=== PATIENT | female | born 1950 | race Caucasian/White ===

== ENCOUNTER → 2017-02-10 | Outpatient (CLI) | payer MEDICARE, BC ==
[2017-02-10 09:10] LABS: ALT 38 U/L (9-52); AST 23 U/L (14-36); Alkaline Phosphatase 87 U/L (38-126); Anion Gap 12 mmol/L; Blood Urea Nitrogen 17 mg/dL (7-17); Calcium 9.1 mg/dL (8.4-10.2); Carbon Dioxide 24 mmol/L (22-30); Chloride 107 mmol/L (98-107); Cholesterol 246 mg/dL (<200); Glucose 86 mg/dL (74-99); HDL Cholesterol 76 mg/dL (40-60); Non-African American GFR(MDRD) >60 (>60 ml/min/1.73 sqM); Potassium 4.3 mmol/L (3.5-5.1); Sodium 143 mmol/L (137-145); Total Bilirubin 0.8 mg/dL (0.2-1.3); Total Protein 6.6 g/dL (6.3-8.2)
== END | disposition home or self-care (01) ==
LOC: LABWHC1 07:38
PROVIDERS: ATTEND Internal Medicine Interventional Cardiology
DX: E78.2 Mixed hyperlipidemia (principal)
CPT/HCPCS: 36415; 80053; 80061

== ENCOUNTER → 2017-06-23 | Outpatient (CLI) | payer MEDICARE, BC ==
--- NOTE | 2017-06-24 11:50 | MM ---
Reason for exam: screening (asymptomatic). Last mammogram was performed 1 year ago. History: Patient is postmenopausal and history of other cancer. Family history of premenopausal breast cancer in mother. Physical Findings: A clinical breast exam by your physician is recommended on an annual basis and results should be correlated with mammographic findings. MG Screening Mammo w CAD Bilateral CC and MLO view(s) were taken. Prior study comparison: June 15, 2016, bilateral MG screening mammo w CAD. May 01, 2015, bilateral MG screening mammo w CAD. There are scattered fibroglandular densities. Finding: There are typically benign round calcifications in both breasts. There is a chronic nodularity in the left axilla. There is no discrete abnormality. ASSESSMENT: Benign, BI-RAD 2 RECOMMENDATION: Routine screening mammogram of both breasts in 1 year.
== END | disposition home or self-care (01) ==
LOC: RADMAMWWP 07:04
PROVIDERS: ATTEND Obstetrics & Gynecology
DX: Z12.31 Encounter for screening mammogram for malignant neoplasm of breast (principal)
CPT/HCPCS: 77067

== ENCOUNTER → 2017-07-18 | Outpatient (CLI) | payer MEDICARE, BC ==
[2017-07-18 07:37] LABS: ALT 29 U/L (9-52); AST 22 U/L (14-36); Cholesterol 218 mg/dL (<200); HDL Cholesterol 72 mg/dL (40-60); LDL Cholesterol,Calculated 126 mg/dL (0-99); Triglycerides 101 mg/dL (<150)
== END | disposition home or self-care (01) ==
LOC: LABWHC1 06:34
PROVIDERS: ATTEND Internal Medicine Interventional Cardiology
DX: E78.2 Mixed hyperlipidemia (principal)
CPT/HCPCS: 36415; 80061; 84450; 84460

== ENCOUNTER → 2018-08-01 | Outpatient (CLI) | payer MEDICARE, BC ==
--- NOTE | 2018-08-01 08:52 | BD ---
EXAMINATION TYPE: Axial Bone Density DATE OF EXAM: 08/01/2018 COMPARISON: DEXA bone scan June 15, 2016 CLINICAL HISTORY: Postmenopausal female Height: 5 FT 4 1/2 IN Weight: 128 FRAX RISK QUESTIONS: RISK FACTORS HISTORY OF: Active: YES Postmenopausal woman: AGE 51 MEDICATIONS: Thyroid Medications: YES Which medication: LEVOTHYROXINE How Long: ONE YEAR Additional Medications: LEVOTHYROXINE PRAVASTATIN Additional History: EXAM MEASUREMENTS: Bone mineral densitometry was performed using the [employer] System. Bone mineral density as measured about the Lumbar spine is: ----- L1-L4(G/cm2): 1.098 T Score Values are as follows: ----- L2: -1.8 ----- L3: -0.2 ----- L4: 0.5 ----- L1-L4: -0.7 Bone mineral density has: INCREASED 6.2 % since study of: 2015 Bone mineral density about the R hip (g/cm2): 0.769 Bone mineral density about the L hip (g/cm2): 0.826 T Score values are as follows: -----R Neck: -1.9 -----L Neck: -1.5 -----R Total: -2.1 -----L Total: -2.2 Bone mineral density has: DECREASED -1.6 % since study of: 2015 IMPRESSION: Osteopenia (T Score between -2.5 and -1) remains present in low back and both hips. There remains slightly increased risk of fracture and the patient may be considered for treatment. Re-Screen 2-5 years. NOTE: T-SCORE=SD OF THE YOUNG ADULT MEAN.
--- NOTE | 2018-08-02 09:43 | MM ---
Reason for exam: screening (asymptomatic). Last mammogram was performed 1 year and 1 month ago. History: Patient is postmenopausal and history of other cancer. Family history of premenopausal breast cancer in mother. Physical Findings: A clinical breast exam by your physician is recommended on an annual basis and results should be correlated with mammographic findings. MG 3D Screening Mammo W/Cad Bilateral CC and MLO view(s) were taken. Prior study comparison: June 23, 2017, bilateral MG screening mammo w CAD. June 15, 2016, bilateral MG screening mammo w CAD. There are scattered fibroglandular densities. Scattered benign oil cysts greater in the right breast. No significant changes when compared with prior studies. ASSESSMENT: Negative, BI-RAD 1 RECOMMENDATION: Routine screening mammogram of both breasts in 1 year.
== END | disposition home or self-care (01) ==
LOC: RADMAMWWP 06:56
PROVIDERS: ATTEND Obstetrics & Gynecology
DX: Z12.31 Encounter for screening mammogram for malignant neoplasm of breast (principal); Z13.820 Encounter for screening for osteoporosis; M85.88 Other specified disorders of bone density and structure, other site; M85.851 Other specified disorders of bone density and structure, right thigh; M85.852 Other specified disorders of bone density and structure, left thigh
CPT/HCPCS: 77063; 77067; 77080

== ENCOUNTER → 2018-08-01 | Outpatient (CLI) | payer MEDICARE, BC ==
[2018-08-01 11:46] LABS: LDL Cholesterol,Calculated 111.8 mg/dL (0.0-131.0); VLDL Calculation 15.2 mg/dL (5.00-40.00)
== END | disposition home or self-care (01) ==
LOC: LABWHC1 06:51
PROVIDERS: ATTEND Internal Medicine Interventional Cardiology
DX: E78.2 Mixed hyperlipidemia (principal)
CPT/HCPCS: 36415; 80061; 82550; 84450; 84460

== ENCOUNTER → 2019-02-22 | Outpatient (CLI) | payer MEDICARE, BC ==
[2019-02-22 12:01] LABS: Chol/HDL Ratio 3.34; LDL Cholesterol,Calculated 132.4 mg/dL (0.0-131.0); VLDL Calculation 24.6 mg/dL (5.00-40.00)
== END | disposition home or self-care (01) ==
LOC: LABWHC1 06:53
PROVIDERS: ATTEND Nurse Practitioner Adult Health
DX: E78.2 Mixed hyperlipidemia (principal)
CPT/HCPCS: 36415; 80061; 82550; 84450; 84460

== ENCOUNTER → 2019-12-31 | Outpatient (CLI) | payer MEDICARE, BC ==
--- NOTE | 2020-01-02 08:54 | MM ---
Reason for exam: screening (asymptomatic). Last mammogram was performed 1 year and 5 months ago. History: Patient is postmenopausal and history of other cancer. Family history of premenopausal breast cancer in mother. Physical Findings: A clinical breast exam by your physician is recommended on an annual basis and results should be correlated with mammographic findings. MG 3D Screening Mammo W/Cad Bilateral CC and MLO view(s) were taken. Prior study comparison: August 01, 2018, bilateral MG 3d screening mammo w/cad. June 23, 2017, bilateral MG screening mammo w CAD. The breast tissue is heterogeneously dense. This may lower the sensitivity of mammography. Probable summation. This finding is changed when compared with previous exams. ASSESSMENT: Incomplete: need additional imaging evaluation, BI-RAD 0 RECOMMENDATION: Special view mammogram of the left breast. If lesion persists on supplemental views, image directed ultrasound is recommended. [facility] will attempt to contact patient to return for supplemental views and ultrasound if indicated.
== END | disposition home or self-care (01) ==
LOC: RADMAMWWP 07:14
PROVIDERS: ATTEND Obstetrics & Gynecology
DX: Z12.31 Encounter for screening mammogram for malignant neoplasm of breast (principal)
CPT/HCPCS: 77063; 77067

== ENCOUNTER → 2020-01-03 | Outpatient (CLI) | payer MEDICARE, BC ==
--- NOTE | 2020-01-03 08:22 | MM ---
Reason for exam: additional evaluation requested from abnormal screening. Last mammogram was performed less than 1 month ago. History: Patient is postmenopausal and history of other cancer. Family history of premenopausal breast cancer in mother at age 50. Physical Findings: Nurse did not find any significant physical abnormalities on exam. MG 3D Work Up W/Cad LT LM and spot compression MLO view(s) were taken of the left breast. Prior study comparison: December 31, 2019, bilateral MG 3d screening mammo w/cad. August 01, 2018, bilateral MG 3d screening mammo w/cad. There is no discrete abnormality. These results were verbally communicated with the patient and result sheet given to the patient on 01/03/20. ASSESSMENT: Negative, BI-RAD 1 RECOMMENDATION: Return to routine screening mammogram schedule for both breasts.
== END | disposition home or self-care (01) ==
LOC: RADMAMWWP 07:05
PROVIDERS: ATTEND Obstetrics & Gynecology
DX: R92.8 Other abnormal and inconclusive findings on diagnostic imaging of breast (principal)
CPT/HCPCS: 77065; G0279; 77061

== ENCOUNTER → 2020-03-21 | Outpatient (CLI) | payer MEDICARE, BC ==
[2020-03-21 11:27] LABS: African American GFR (CKD) 102.5 (60.0-200.0); Albumin 4.4 g/dL (3.80-4.90); Albumin/Globulin Ratio 2.44 (1.60-3.17); Anion Gap 8.7 mmol/L (4.00-12.00); BUN/Creat Ratio 17.14 Ratio (12.00-20.00); Calcium 9.3 mg/dL (8.7-10.3); Carbon Dioxide 25.3 mmol/L (21.6-31.8); Chol/HDL Ratio 3.2; Globulin 1.8 g/dL (1.6-3.3); LDL Cholesterol,Calculated 122.6 mg/dL (0.0-131.0); Non-African American GFR(CKD) 88.4 (60.0-200.0); Potassium 4.5 mmol/L (3.5-5.5); Total Bilirubin 0.5 mg/dL (0.2-1.2); Total Protein 6.2 g/dL (6.2-8.2); VLDL Calculation 20.4 mg/dL (5.00-40.00)
== END | disposition home or self-care (01) ==
LOC: LABWHC1 07:06
PROVIDERS: ATTEND Internal Medicine Interventional Cardiology
DX: E78.2 Mixed hyperlipidemia (principal)
CPT/HCPCS: 36415; 80053; 80061

== ENCOUNTER → 2020-05-29 | Outpatient (CLI) | payer MEDICARE, BC ==
[2020-05-29 11:09] LABS: Chol/HDL Ratio 2.77
== END | disposition home or self-care (01) ==
LOC: LABWHC1 07:11
PROVIDERS: ATTEND Nurse Practitioner Adult Health
DX: E78.2 Mixed hyperlipidemia (principal)
CPT/HCPCS: 36415; 80061; 84450; 84460

== ENCOUNTER → 2020-12-26 | Outpatient (CLI) | payer MEDICARE, BC | END | disposition home or self-care (01) ==

== ENCOUNTER → 2021-01-02 | Outpatient (CLI) | payer MEDICARE, BC ==
--- NOTE | 2021-01-06 13:44 | MM ---
Reason for exam: screening (asymptomatic). Last mammogram was performed 1 year ago. History: Patient is postmenopausal and history of other cancer. Family history of premenopausal breast cancer in mother at age 50. Took hormonal contraceptives for 3 months. Physical Findings: A clinical breast exam by your physician is recommended on an annual basis and results should be correlated with mammographic findings. MG 3D Screening Mammo W/Cad Bilateral CC and MLO view(s) were taken. Prior study comparison: January 03, 2020, left breast MG 3d work up w/cad LT. December 31, 2019, bilateral MG 3d screening mammo w/cad. No significant changes when compared with prior studies. ASSESSMENT: Benign, BI-RAD 2 RECOMMENDATION: Routine screening mammogram of both breasts in 1 year.
== END | disposition home or self-care (01) ==
LOC: RADMAMWWP 07:51
PROVIDERS: ATTEND Obstetrics & Gynecology
DX: Z12.31 Encounter for screening mammogram for malignant neoplasm of breast (principal)
CPT/HCPCS: 77063; 77067

== ENCOUNTER → 2022-01-11 | Outpatient (CLI) | payer MEDICARE, BC ==
--- NOTE | 2022-01-11 09:53 | BD ---
EXAMINATION TYPE: Axial Bone Density DATE OF EXAM: 01/11/2022 COMPARISON: 06.15.2016 IN DATABASE CLINICAL HISTORY: 71 years year old Female. ICD-10 CODE: M85.88 OSTEOPENIA Height: 64.4 Weight: 123 FRAX RISK QUESTIONS: NOTHING ADDITIONAL TO ADD HERE RISK FACTORS HISTORY OF: Active: YES Postmenopausal woman: YES, AT AGE 53 YRS OLD Hyperparathyroidism: NO Adrenal Insufficiency: NO MEDICATIONS: Thyroid Medications: YES, SYNTHROID PRODUCT FOR ABOUT 5 YRS Additional Medications: STATIN FOR CHOLESTEROL, VIT D , CALCIUM AND MULTIVITAMIN Additional History: CHOLESTEROL, THYROID EXAM MEASUREMENTS: Bone mineral densitometry was performed using the [employer]. Bone mineral density as measured about the Lumbar spine is: ----- L1-L4(G/cm2): 1.075 T Score Values are as follows: ----- L1: -1.6 ----- L2: -2.1 ----- L3: -0.4 ----- L4: 0.3 ----- L1-L4: -0.9 Bone mineral density has: Increased 3.3% since study of: 06.15.2016 Bone mineral density about the R hip (g/cm2): 0.731 Bone mineral density about the L hip (g/cm2): 0.699 T Score values are as follows: -----R Neck: -2.2 -----L Neck: -2.1 -----R Total: -2.2 -----L Total: -2.5 Bone mineral density has: Decreased -5.2% since study of: 06.15.2016 FRAX%s: The graph provided illustrates a 11.7% chance for a major osteoporotic fx and a 2.8% chance f or the hips probability for fx in 10 years time. IMPRESSION: Osteopenia (T Score between -2.5 and -1). There is slightly increased risk of fracture and the patient may be considered for treatment. Re-Screen 2-5 years. NOTE: T-SCORE=SD OF THE YOUNG ADULT MEAN.
== END | disposition home or self-care (01) ==
LOC: RADMAMWWP 07:28
PROVIDERS: ATTEND Obstetrics & Gynecology
DX: Z12.31 Encounter for screening mammogram for malignant neoplasm of breast (principal)
CPT/HCPCS: 77063; 77067; 77080

== ENCOUNTER → 2022-06-17 | Outpatient (CLI) | payer MEDICARE, BC ==
[2022-06-17 10:51] LABS: ALT 19 U/L (8-44); AST 19 U/L (13-35); Chol/HDL Ratio 3.09 Ratio; LDL Cholesterol,Calculated 144.7 mg/dL (0.0-131.0); VLDL Calculation 16.16 mg/dL (5.00-40.00)
== END | disposition home or self-care (01) ==
LOC: LABWHC1 06:54
PROVIDERS: ATTEND Internal Medicine Interventional Cardiology
DX: E78.2 Mixed hyperlipidemia (principal)
CPT/HCPCS: 36415; 80061; 84450; 84460

== ENCOUNTER → 2023-01-18 | Outpatient (CLI) | payer MEDICARE, BC ==
--- NOTE | 2023-01-19 18:56 | MM ---
Reason for Exam: Screening (asymptomatic). Last mammogram was performed 1 year(s) and 1 month(s) ago. Patient History: Menarche at age 17. First Full-Term at age 24. Postmenopausal. Other cancer. Hormonal Contraceptives for 3 months. Mother had breast cancer, age 52. Risk Values: Minnie 5 year model risk: 3.0%. NCI Lifetime model risk: 8.3%. Prior Study Comparison: 01/03/2020 Left Diagnostic Mammogram, [facility]. 01/02/2021 Bilateral Screening Mammogram, [facility]. 01/11/2022 Bilateral MG 3D screening mammo w/cad, [facility]. Tissue Density: There are scattered fibroglandular densities. Findings: Analyzed By CAD. Pattern appears symmetrical and stable. Benign coarse calcifications within the right breast. No significant interval changes are evident No suspicious groups of microcalcifications, spiculated or lobular masses, architectural distortion or other secondary signs of malignancy are mammographically apparent. Overall Assessment: Benign, BI-RAD 2 Management: Screening Mammogram of both breasts in 1 year. A negative mammogram report should not preclude additional follow up of suspicious palpable abnormalities. Patient should continue monthly self breast exam. A clinical breast exam by your physician is recommended on an annual basis and results should be correlated with mammographic findings. Electronically signed and approved by: Hernan Coulter D.O. Radiologis
== END | disposition home or self-care (01) ==
LOC: RADMAMWWP 07:50
PROVIDERS: ATTEND Obstetrics & Gynecology
DX: Z12.31 Encounter for screening mammogram for malignant neoplasm of breast (principal); Z78.0 Asymptomatic menopausal state; Z80.3 Family history of malignant neoplasm of breast
CPT/HCPCS: 77063; 77067

== ENCOUNTER 2023-03-02 09:42 | Observation (INO) | payer MEDICARE, BC ==
--- NOTE | 2023-03-02 10:14 | ED ---
Chest Pain HPI - General Source: patient, RN notes reviewed Mode of arrival: ambulatory Limitations: no limitations <Colby Harris - Last Filed: 03/02/23 10:13> - General Source: RN notes reviewed, old records reviewed - History of Present Illness MD Complaint: chest pain, other (Elevated blood pressure) -: days(s) Onset: during rest, during exertion Pain Location: substernal, left chest, right chest, epigastric Pain Radiation: back Severity: moderate Severity scale (1-10): 5 Quality: aching, heaviness Consistency: constant Improves With: nothing Worsens With: nothing Anginal Symptoms: dyspnea Other Symptoms: palpitations Treatments Prior to Arrival: none <Leroy Santos - Last Filed: 03/09/23 18:27> - General Chief Complaint: Chest Pain Stated Complaint: Chest Pain Time Seen by Provider: 03/02/23 10:13 - History of Present Illness Initial Comments: 72-year-old female presents emergency Department chief complaint chest pain, chest pressure. Patient states pain started earlier today. She does feel short of breath. Patient states that she used to be on blood pressure medication for 2 months but it was discontinued. Patient large blood pressure and follows up with Dr. Moseley. Patient has no prior cardiac stents. Denies any leg pain or leg swelling (Colby Harris) This is a 72-year-old female to the emergency department for evaluation of chest pain and severe elevated blood pressure. Hypertensive blood pressure. Patient is she woke up not really feeling well and prompted her to check her blood pressure which was noted to be extremely elevated. Patient is occasionally follow with her blood pressure usually around her yearly appointment with cardiology. Patient became concerned and are significantly elevated blood pressure and presents here with elevated blood pressure chest pain and prior symptoms of not feeling well. (Leroy Santos) - Related Data Home Medications Medication Instructions Recorded Confirmed Ezetimibe [Zetia] 10 mg PO HS 03/02/23 03/02/23 Levothyroxine Sodium [Synthroid] 25 mcg PO DAILY 03/02/23 03/02/23 Previous Rx's Medication Instructions Recorded Aspirin 81 mg PO DAILY #30 tab 03/03/23 Metoprolol Tartrate [Lopressor] 25 mg PO BID #60 tab 03/03/23 Allergies Allergy/AdvReac Type Severity Reaction Status Date / Time codeine Allergy Rash/Hives Verified 03/02/23 15:51 Sulfa (Sulfonamide Allergy Rash/Hives Verified 03/02/23 15:51 Antibiotics) Review of Systems ROS Other: All systems not noted in ROS Statement are negative. <Colby Harris - Last Filed: 03/02/23 10:13> ROS Other: All systems not noted in ROS Statement are negative. <Leroy Santos - Last Filed: 03/09/23 18:27> ROS Statement: Those systems with pertinent positive or pertinent negative responses have been documented in the HPI. Past Medical History Past Medical History: Hyperlipidemia, Thyroid Disorder History of Any Multi-Drug Resistant Organisms: None Reported Past Surgical History: Tubal Ligation Additional Past Surgical History / Comment(s): mole removed Past Psychological History: No Psychological Hx Reported Smoking Status: Never smoker Past Alcohol Use History: Rare Past Drug Use History: None Reported <JackmontanaColby Pak - Last Filed: 03/02/23 10:13> General Exam Limitations: no limitations <KimberlyColby Pak - Last Filed: 03/02/23 10:13> General appearance: alert, in no apparent distress Head exam: Present: atraumatic, normocephalic, normal inspection Eye exam: Present: normal appearance, PERRL, EOMI. Absent: scleral icterus, conjunctival injection, periorbital swelling ENT exam: Present: normal exam, mucous membranes moist Neck exam: Present: normal inspection. Absent: tenderness, meningismus, lymphadenopathy Respiratory exam: Present: normal lung sounds bilaterally. Absent: respiratory distress, wheezes, rales, rhonchi, stridor Cardiovascular Exam: Present: regular rate, normal rhythm, normal heart sounds. Absent: systolic murmur, diastolic murmur, rubs, gallop, clicks GI/Abdominal exam: Present: soft, normal bowel sounds. Absent: distended, tenderness, guarding, rebound, rigid Extremities exam: Present: normal inspection, full ROM, normal capillary refill. Absent: tenderness, pedal edema, joint swelling, calf tenderness Back exam: Present: normal inspection Neurological exam: Present: alert, oriented X3, CN II-XII intact Psychiatric exam: Present: normal affect, normal mood Skin exam: Present: warm, dry, intact, normal color. Absent: rash <Leroy Santos - Last Filed: 03/09/23 18:27> - General Exam Comments Initial Comments: Visual Physical Exam Vital signs reviewed General: Well-appearing, nontoxic, no acute distress. Head: Normocephalic, atraumatic Eyes: PERRLA, EOMI ENT: Airway patent Chest: Nonlabored breathing Skin: No visual rash, normal skin tone Neuro: Alert and oriented 3 Musculoskeletal: No gross abnormalities (Colby Harris) Course <Leroy Santos - Last Filed: 03/09/23 18:27> Vital Signs 03/02/23 03/02/23 03/02/23 10:06 17:42 21:30 Temperature 97.9 F 97.4 F L Pulse Rate 78 67 68 Respiratory 18 18 18 Rate Blood Pressure 133/76 141/72 164/69 O2 Sat by Pulse 95 98 98 Oximetry - Reevaluation(s) Reevaluation #1: 03/02/23 16:28 Medical record is reviewed (Leroy Santos) Reevaluation #2: 03/02/23 16:28 Symptoms are unchanged 03/02/23 16:29 Still with chest pain blood pressure remains elevated (Leroy Santos) Reevaluation #3: 03/02/23 16:29 Patient informed results questions answered (Leroy Santos) Reevaluation #4: 03/02/23 16:29 Was pt. sent in by a medical professional or institution (, PA, PRINTING MACHINE OPERATOR, urgent care, hospital, or [facility]...) When possible be specific @ -no Did you speak to anyone other than the patient for history (EMS, parent, family, police, friend...)? What history was obtained from this source @ -no Did you review nursing and triage notes (agree or disagree)? Why? @ -agree Are old charts reviewed (outside hosp., previous admission, EMS record, old EKG, old radiological studies, urgent care reports/EKG's, [facility] records)? Report findings @ -yes Differential Diagnosis (chest pain, altered mental status, abdominal pain women, abdominal pain men, vaginal bleeding, weakness, fever, dyspnea, syncope, headache, dizziness, GI bleed, back pain, seizure, CVA, palpatations, mental health, musculoskeletal)? @ -prior EKG interpreted by me (3pts min.). @ -yes X-rays interpreted by me (1pt min.). @ -yes CT interpreted by me (1pt min.). @ -no U/S interpreted by me (1pt. min.). @ -no What testing was considered but not performed or refused? (CT, X-rays, U/S, labs)? Why? @ -none What meds were considered but not given or refused? Why? @ -none Did you discuss the management of the patient with other professionals (professionals i.e. Dr., PA, PRINTING MACHINE OPERATOR, lab, RT, psych nurse, director social, stock taker, teacher, navy airspace officer, patient case coordinator)? Give summary @ -no Was smoking cessation discussed for >3mins.? @ -no Was critical care preformed (if so, how long)? @ -yes31 Were there social determinants of health that impacted care today? How? (H omelessness, low income, unemployed, alcoholism, drug addiction, transportation, low edu. Level, literacy, decrease access to med. care, correction, rehab)? @ -none Was there de-escalation of care discussed even if they declined (Discuss DNR or withdrawal of care, Hospice)? DNR status @ -no What co-morbidities impacted this encounter? (DM, HTN, Smoking, COPD, CAD, Cancer, CVA, ARF, Chemo, Hep., AIDS, mental health diagnosis, sleep apnea, morbid obesity)? @ -none Was patient admitted / discharged? Hospital course, mention meds given and route, prescriptions, significant lab abnormalities, going to OR and other pertinent info. @ - 72 female will be admitted for chest pain, does have chest pain observation criteria with severely elevated blood pressure will admit for blood pressure control as well. Admitted Undiagnosed new problem with uncertain prognosis? @ -no Drug Therapy requiring intensive monitoring for toxicity (Heparin, Nitro, Insulin, Cardizem)? @ -no Were any procedures done? @ -no Diagnosis/symptom? @ -Chest pain and hypertensive urgency Acute, or Chronic, or Acute on Chronic? @ -Acute Uncomplicated (without systemic symptoms) or Complicated (systemic symptoms)? @ -Complicated Side effects of treatment? @ -no Exacerbation, Progression, or Severe Exacerbation? @ -exacerbation Poses a threat to life or bodily function? How? (Chest pain, [place], [place], pneumonia, PE, COPD, DKA, ARF, appy, cholecystitis, CVA, Diverticulitis, Homicidal, Suicidal, threat to staff... and all critical care pts) @ -yes was severely elevated blood pressure (Leroy Santos) Reevaluation #5: 03/02/23 16:29 Differential Chest Pain: Stable Angina, Unstable Angina, STEMI, NSTEMI Aortic Dissection, Pneumothorax, Musculoskeletal, Esophageal Spasm GERD, Cholecystitis, Pancreatitis, Zoster, this is not meant to be an all-inclusive list. (Leroy Santos) - Consultations Consultation #1: Spoke with admitting physicians who agree to admit this patient (Leroy Santos) Chest Pain MDM <Colby Harris - Last Filed: 03/02/23 10:13> <Leroy Santos - Last Filed: 03/09/23 18:27> - MDM I performed a quick note portion of this Chart signed Colby Harris PA-C (Colby Harris) 72 female will be admitted for chest pain, does have chest pain observation criteria with severely elevated blood pressure will admit for blood pressure control as well. (Leroy Santos) Critical Care Time Critical Care Time: Yes Total Critical Care Time: 31 <Leroy Santos - Last Filed: 03/09/23 18:27> Disposition <Colby Harris - Last Filed: 03/02/23 10:13> Is patient prescribed a controlled substance at d/c from ED?: No Time of Disposition: 16:30 <Leroy Santos - Last Filed: 03/09/23 18:27> Clinical Impression: Chest pain, Hypertensive urgency Disposition: ADMITTED IP TO THIS HOSP
--- NOTE | 2023-03-02 10:34 | XR ---
EXAMINATION TYPE: XR chest 2V DATE OF EXAM: 03/02/2023 COMPARISON: None INDICATION: Chest pain TECHNIQUE: Frontal and lateral views of the chest are obtained. FINDINGS: The heart size is normal. The pulmonary vasculature is normal. The lungs are clear. IMPRESSION: 1. No acute pulmonary process.
[2023-03-02 11:01] LABS: Basophils % (A) 0 %; Eosinophils # (A) 0.2 k/uL (0-0.7); Eosinophils % (A) 3 %; HCT 39.6 % (34.0-46.0); Lymphocytes # (A) 1.2 k/uL (1.0-4.8); Lymphocytes % (A) 19 %; MCH 28.9 pg (25.0-35.0); MCHC 32.9 g/dL (31.0-37.0); Mean Platelet Volume 9.1; Monocytes # (A) 0.3 k/uL (0-1.0); Monocytes % (A) 5 %; Neutrophils # (A) 4.8 k/uL (1.3-7.7); Neutrophils % (A) 72 %; Platelet Count 263 k/uL (150-450); RDW 13.8 % (11.5-15.5); WBC 6.7 k/uL (3.8-10.6)
[2023-03-02 11:15] LABS: INR 0.9 (<1.2); Partial Thromboplastin Time 23.3 sec (22.0-30.0); Prothrombin Time 9.7 sec (9.0-12.0)
[2023-03-02 11:24] LABS: ALT 22 U/L (4-34); AST 27 U/L (14-36); African American GFR (CKD) >90 (>60 ml/min/1.73 sqM); Albumin 4.3 g/dL (3.5-5.0); Alkaline Phosphatase 81 U/L (38-126); Anion Gap 7 mmol/L; Blood Urea Nitrogen 14 mg/dL (7-17); Calcium 9.3 mg/dL (8.4-10.2); Carbon Dioxide 24 mmol/L (22-30); Chloride 107 mmol/L (98-107); Glucose 103 mg/dL (74-99); Magnesium 2.1 mg/dL (1.6-2.3); Non-African American GFR(CKD) >90 (>60 ml/min/1.73 sqM); Potassium 4.3 mmol/L (3.5-5.1); Sodium 138 mmol/L (137-145); Total Bilirubin 0.8 mg/dL (0.2-1.3); Total Protein 6.8 g/dL (6.3-8.2)
[2023-03-02 11:31] LABS: NT-Pro-B-Type Natriuretic Pept 174 pg/mL
[2023-03-02] MEDS ORDERED: NALOXONE 0.4 MG/ML 1 ML VIAL IV PRN (16:31)
[2023-03-02] MEDS ORDERED: ONDANSETRON 4 MG/2 ML VIAL IVP PRN (16:31)
[2023-03-02] MEDS ORDERED: LABETALOL 5 MG/ML VIAL MDV IVP STA (16:31)
[2023-03-02] MEDS ORDERED: MORPHINE SULFATE 4 MG/ML SYRINGE IV PRN (16:31)
[2023-03-02] MEDS ORDERED: SODIUM CHLORIDE 0.9% 1,000 ML IV STA ×2 (16:31)
[2023-03-02] MEDS: METOPROLOL TARTRATE 50 MG TAB PO SCH (21:29)
[2023-03-03] MEDS ORDERED: LEVOTHYROXINE 25 MCG TAB PO SCH (06:30)
[2023-03-03 08:35] LABS: Basophils # (A) 0.02 X 10*3/uL (0.00-0.10); Basophils % (A) 0.4 %; Eosinophils # (A) 0.16 X 10*3/uL (0.04-0.35); Eosinophils % (A) 3.1 %; HCT 34.5 % (37.2-46.3); MCH 28.6 pg (27.0-32.0); MCHC 31.9 d/dL (32.0-37.0); MCV 89.6 FL (80.0-97.0); Mean Platelet Volume 11.4 FL (9.5-12.2); Monocytes % (A) 7.8 %; NRBC Per 100 WBC 0 X 10*3/uL (0.00-0.01); Neutrophils # (A) 2.64 X 10*3/uL (1.80-7.70); Neutrophils % (A) 51.3 %; Platelet Count 266 X 10*3/uL (140-440); RBC 3.85 X 10*6/uL (4.10-5.20); WBC 5.14 X 10*3/uL (4.50-10.00)
[2023-03-03 09:14] LABS: ALT 16 U/L (8-44); AST 17 U/L (13-35); Albumin 3.8 d/dL (3.8-4.9); Albumin/Globulin Ratio 2.53 Ratio (1.60-3.17); Alkaline Phosphatase 63 U/L (41-126); BUN/Creat Ratio 17.29 Ratio (12.00-20.00); Blood Urea Nitrogen 12.1 mg/dL (9.0-27.0); Calcium 8.6 mg/dL (8.7-10.3); Carbon Dioxide 24.5 mmol/L (21.6-31.8); Chloride 110 mmol/L (96-109); Globulin 1.5 d/dL (1.6-3.3); Glucose 86 mg/dL (70-110); Magnesium 2.1 mg/dL (1.5-2.4); Phosphorus 3.5 mg/dL (2.4-5.1); Potassium 4.5 mmol/L (3.5-5.5); Sodium 143 mmol/L (135-145); Total Bilirubin 0.5 mg/dL (0.3-1.2); Total Protein 5.3 d/dL (6.2-8.2)
--- NOTE | 2023-03-03 11:39 | P.CRDCN ---
History of Present Illness History of present illness: HISTORY OF PRESENT ILLNESS: This is a 72-year-old female with a past medical history significant for hyperlipidemia, hypothyroidism, and anxiety. Patient follows in the office with Dr. Moseley. We have been asked to see the patient in consultation for chest pain and hypertension. Patient examined at the bedside. Patient states 2 days ago at home she was having palpitations and overall did not feel good. She states that she checked her blood pressure and was noted to be 179/90. She states yesterday she had some tightness and heaviness in her chest. She denied any radiation of the pain. She denied any shortness of breath. She states that her blood pressure yesterday was elevated as well with a reading of 153/90. She does report feeling more anxious for the past week but is unsure why. This morning she is complaining of a headache and lightheadedness which she relates is secondary to not eating yet this morning. She denies any chest pain or pressure at the time of examination. * EKG reveals sinus mechanism with no signs of acute ischemia * Chest xray negative for acute process * Laboratory data: WBC 5.14. Hemoglobin 11.0. Platelet count 266. D-dimer 0.52. Sodium 143. Potassium 4.5. BUN 12. Creatinine 0.7. Troponin negative 3. * Current home cardiac medications include Zetia 10mg daily * Most recent echocardiogram obtained in January 2021 revealed normal EF, mild MR, mild TR * Patient underwent stress testing in March 2009 which was negative for ischemia REVIEW OF SYSTEMS: At the time of my exam: CONSTITUTIONAL: Denies fever or chills. HEENT: Denies blurred vision, vision changes, or eye pain. Denies hemoptysis CARDIOVASCULAR: Denies chest pain. Denies orthopnea. Denies PND. Denies palpitations RESPIRATORY: Denies shortness of breath. GASTROINTESTINAL: Denies abdominal pain. Denies nausea or vomiting. HEMATOLOGIC: Denies bleeding disorders. GENITOURINARY: Denies any blood in urine. SKIN: Denies pruitis. Denies rash. PHYSICAL EXAM: VITAL SIGNS: Reviewed. GENERAL: Well-developed in no acute distress. HEENT: Head is normocephalic. Pupils are equal, round. Sclerae anicteric. Mucous membranes of the mouth are moist. Neck supple. No JVD or thyromegaly LUNGS: Respirations even and unlabored. Lungs essentially clear to auscultation bilaterally. HEART: Regular rate and rhythm. S1 and S2 heard. ABDOMEN: Soft. Nondistended. Nontender. EXTREMITIES: Normal range of motion. No clubbing or cyanosis. Peripheral pulses intact. No lower extremity edema NEUROLOGIC: Awake and alert. Oriented x 3. ASSESSMENT: Palpitations Chest pain, troponins negative 3 Hypertension Hyperlipidemia Hypothyroidism Anxiety PLAN: An acute coronary event has been ruled out Obtain 2-D echo to assess cardiac structure and function Decrease metoprolol to 25 mg twice a day. Will continue to monitor blood pressure and make adjustments to medication regimen on an outpatient basis Patient to undergo stress echocardiogram today to assess for ischemia If negative, she may be discharged home today from a cardiac standpoint and follow-up in the office with Dr. Moseley Nurse practitioner note has been reviewed by physician. Signing provider agrees with the documented findings, assessment, and plan of care. Past Medical History Past Medical History: Hyperlipidemia, Thyroid Disorder History of Any Multi-Drug Resistant Organisms: None Reported Past Surgical History: Tubal Ligation Additional Past Surgical History / Comment(s): mole removed Past Psychological History: No Psychological Hx Reported Smoking Status: Never smoker Past Alcohol Use History: Rare Past Drug Use History: None Reported Medications and Allergies Home Medications Medication Instructions Recorded Confirmed Type Ezetimibe [Zetia] 10 mg PO HS 03/02/23 03/02/23 History Levothyroxine Sodium [Synthroid] 25 mcg PO DAILY 03/02/23 03/02/23 History Allergies Allergy/AdvReac Type Severity Reaction Status Date / Time codeine Allergy Rash/Hives Verified 03/02/23 15:51 Sulfa (Sulfonamide Allergy Rash/Hives Verified 03/02/23 15:51 Antibiotics) Physical Exam Vitals: Vital Signs Temp Pulse Pulse Resp BP BP Pulse Ox 03/03/23 08:00 97.7 F 72 16 155/71 96 03/03/23 02:09 97.9 F 76 16 122/69 99 03/03/23 02:00 76 03/02/23 22:20 98 F 72 15 137/71 95 03/02/23 21:30 68 18 164/69 98 03/02/23 17:42 97.4 F L 67 18 141/72 98 Intake and Output 03/02/23 03/03/23 03/03/23 22:59 06:59 14:59 Other: # Voids 1 2 Weight 53.524 kg Results 03/03/23 05:13 03/03/23 05:13 Cardiac Enzymes 03/02/23 03/02/23 03/02/23 Range/Units 10:49 17:22 20:49 AST (13-35) U/L Troponin I <0.012 <0.012 <0.012 (0.000-0.034) ng/mL 03/03/23 Range/Units 05:13 AST 17 (13-35) U/L Troponin I (0.000-0.034) ng/mL CBC 03/03/23 Range/Units 05:13 WBC 5.14 (4.50-10.00) X 10*3/uL RBC 3.85 L (4.10-5.20) X 10*6/uL Hgb 11.0 L (12.0-15.0) d/dL Hct 34.5 L (37.2-46.3) % Plt Count 266 (140-440) X 10*3/uL Comprehensive Metabolic Panel 03/03/23 Range/Units 05:13 Sodium 143 (135-145) mmol/L Potassium 4.5 (3.5-5.5) mmol/L Chloride 110 H (96-109) mmol/L Carbon Dioxide 24.5 (21.6-31.8) mmol/L BUN 12.1 (9.0-27.0) mg/dL Creatinine 0.7 (0.6-1.5) mg/dL Glucose 86 (70-110) mg/dL Calcium 8.6 L (8.7-10.3) mg/dL AST 17 (13-35) U/L ALT 16 (8-44) U/L Alkaline Phosphatase 63 (41-126) U/L Total Protein 5.3 L (6.2-8.2) d/dL Albumin 3.8 (3.8-4.9) d/dL Current Medications Generic Name Dose Route Start Last Admin Trade Name Freq PRN Reason Stop Dose Admin Ezetimibe 10 mg 03/03/23 21:00 Ezetimibe 10 Mg Tab PO HS SAMARA Levothyroxine Sodium 25 mcg 03/03/23 06:30 03/03/23 06:26 Levothyroxine 25 Mcg Tab PO 25 mcg DAILY@0630 SAMARA Administration Metoprolol Tartrate 25 mg 03/03/23 21:00 Metoprolol Tartrate 25 Mg Tab PO BID SAMARA Morphine Sulfate 4 mg 03/02/23 16:31 Morphine Sulfate 4 Mg/Ml Syringe IV Q4HR PRN Severe Pain (Scale 7 to 10) Naloxone HCl 0.2 mg 03/02/23 16:31 Naloxone 0.4 Mg/Ml 1 Ml Vial IV Q2M PRN Opioid Reversal Ondansetron HCl 4 mg 03/02/23 16:31 Ondansetron 4 Mg/2 Ml Vial IVP Q8HR PRN Nausea And Vomiting Intake and Output 03/02/23 03/03/23 03/03/23 22:59 06:59 14:59 Other: # Voids 1 2 Weight 53.524 kg 03/03/23 05:13 03/03/23 05:13
[2023-03-03] MEDS: METOPROLOL TARTRATE 50 MG TAB PO SCH (13:11)
--- NOTE | 2023-03-03 13:20 | CA ---
Stress Echo Report Yuliya Alves Age: 72 Gender: F : 1950 Exam Date: 03/03/2023 11:59 Exam Location: [place] Stress Ht (in): 65 Wt (lb): 118 Ordering Physician: Carmella Mcbride Referring Physician: [id number] Customer Complaint Clerk: Ovi Gilmore Technologist Procedure CPT: Indication: LV function, CP ICD-9 Codes: Rhythm: Patient History: Cardiac Medications: Medications in past 24 hours: Contrast: N/A Stress Results Protocol: [place] Total dose(mL): Exercise Duration (min:sec): 6:[address] Depression (mm): Angina Score: Scanlon Score: METS: 7.1 Resting HR: 83 Resting BP: 173 / 89 Peak HR: 154 Peak BP: 203 / 48 Max Predicted HR: 149 103 % Max Predicted HR Target HR: 127 Double Product: 30815 Stress Summary: The patient's target heart rate was achieved BP Response: Normal Reason for Termination: Reached target heart rate or work-load Cardiac Symptoms: Test terminated after reaching target heart rate (85% max predicted) ECG Analysis Resting ECG: Normal sinus rhythm, normal ECG Stress ECG: No abnormal ST/T wave changes with exercise Arrhythmia: None Echo Analysis Resting Echo: Normal resting echocardiogram. Peak Echo Analysis: Normal wall thickening and motion MEASUREMENTS (Male/Female) Normal Values CONCLUSIONS No ECG evidence of ischemia with exercise. Normal treadmill stress echocardiogram. Dr. Kwaku Moseley MD (Electronically Signed) Final Date: 03 March 2023 13:19
[2023-03-03 15:50] VITALS: RESP 16
--- NOTE | 2023-03-03 15:50 | P.HPIM ---
History of Present Illness H&P Date: 03/03/23 Chief Complaint: Chest pressure Very pleasant 72-year-old patient who follows with Dr. Clay Martin. Examiner Rating Clerk Dr. Moseley. Patient several years ago was diagnosed with blood pressure. Did get antihypertensive for 2 months then there were discontinued. Patient takes a blood pressure about once a month. 2 days ago patient is not feeling well in the morning and decided take a blood pressure came back at about 179/90. Checked again that is yesterday not feeling well again blood pressure was high. Also developed some chest pressure. No radiation. Decided to come in. Patient has also noticed that she does get short of breath on exertion. No dizziness no lightheadedness. No perspiration. Patient is accompanied by her daughter the bedside. For blood pressure Lopressor was started overnight in the ER. Review of systems: GEN.: None EYES: None HEENT: None NECK: None RESPIRATORY: None CARDIOVASCULAR: As above GASTROINTESTINAL: None GENITOURINARY: None MUSCULOSKELETAL: None LYMPHATICS: None HEMATOLOGICAL: None PSYCHIATRY: None NEUROLOGICAL: None Past medical history to include: Hyperlipidemia, hypothyroid Social history: No smoking. Alcohol rarely. Lives alone. Physical examination: VITAL SIGNS: 97.7, 72, 16, 155/71, 96% room air GENERAL: BMI 19.6, declining A comfortable. EYES: Pupils equal. Conjunctiva normal. HEENT: External appearance of nose and ears normal, oral cavity grossly normal. NECK: JVD not raised; masses not palpable. HEART: First and second heart sounds are normal; no edema. LUNGS: Respiratory rate normal; clear to auscultation. ABDOMEN: Soft, nontender, liver spleen not palpable, no masses palpable. PSYCH: Alert and oriented x3; mood and affect normal. MUSCULOSKELETAL:No Clubbing/cyanosis;muscles-grossly intact. OA NEUROLOGICAL: Cranial nerves grossly intact; no facial asymmetry, power and sensation grossly intact. LYMPHATICS: No lymph nodes palpable in the axilla and neck INVESTIGATIONS, reviewed in the clinical context: White count 5.1 hemoglobin 11 platelets 266 sodium 143 potassium 4.5 BUN 12.1 creatinine 0.7 EKG tracing personally reviewed by me-normal sinus rhythm Chest x-ray film personally reviewed by me-mild hyperinflation Assessment and plan: -Essential hypertension uncontrolled. Blood pressure was recorded over 170 systolic at home. Lopressor. -Chest pain likely angina secondary to uncontrolled blood pressure. Hopefully should be better controlled with Lopressor. Troponins have been negative. Will need stress test.. Aspirin -Hyperlipidemia Zetia -Hypothyroid Synthroid 25 g a day Care was discussed at length with the patient daughter the bedside. Lopressor was discussed in detail. Cardiology consulted. Ordered stress echocardiogram Past Medical History Past Medical History: Hyperlipidemia, Thyroid Disorder History of Any Multi-Drug Resistant Organisms: None Reported Past Surgical History: Tubal Ligation Additional Past Surgical History / Comment(s): mole removed Past Psychological History: No Psychological Hx Reported Smoking Status: Never smoker Past Alcohol Use History: Rare Past Drug Use History: None Reported Medications and Allergies Home Medications Medication Instructions Recorded Confirmed Type Ezetimibe [Zetia] 10 mg PO HS 03/02/23 03/02/23 History Levothyroxine Sodium [Synthroid] 25 mcg PO DAILY 03/02/23 03/02/23 History Aspirin 81 mg PO DAILY #30 tab 03/03/23 Rx Metoprolol Tartrate [Lopressor] 25 mg PO BID #60 tab 03/03/23 Rx Allergies Allergy/AdvReac Type Severity Reaction Status Date / Time codeine Allergy Rash/Hives Verified 03/02/23 15:51 Sulfa (Sulfonamide Allergy Rash/Hives Verified 03/02/23 15:51 Antibiotics) Physical Exam Vitals: Vital Signs Temp Pulse Pulse Resp BP BP Pulse Ox 03/03/23 08:00 97.7 F 72 16 155/71 96 03/03/23 02:09 97.9 F 76 16 122/69 99 03/03/23 02:00 76 03/02/23 22:20 98 F 72 15 137/71 95 03/02/23 21:30 68 18 164/69 98 03/02/23 17:42 97.4 F L 67 18 141/72 98 03/02/23 10:06 97.9 F 78 18 133/76 95 Intake and Output 03/02/23 03/03/23 03/03/23 22:59 06:59 14:59 Other: # Voids 1 2 Weight 53.524 kg Results CBC & Chem 7: 03/03/23 05:13 03/03/23 05:13 Labs: Abnormal Lab Results - Last 24 Hours (Table) 03/02/23 03/03/23 03/03/23 Range/Units 10:49 05:13 05:13 RBC 3.85 L (4.10-5.20) X 10*6/uL Hgb 11.0 L (12.0-15.0) d/dL Hct 34.5 L (37.2-46.3) % MCHC 31.9 L (32.0-37.0) d/dL Chloride 110 H (96-109) mmol/L Glucose 103 H (74-99) mg/dL Calcium 8.6 L (8.7-10.3) mg/dL Total Protein 5.3 L (6.2-8.2) d/dL Globulin 1.5 L (1.6-3.3) d/dL Thrombosis Risk Factor Assmnt - Choose All That Apply Any of the Below Risk Factors Present?: No Other Risk Factors: Yes Each Risk Factor Represents 2 Points: Age 61-74 years Other congenital or acquired thrombophilia - If yes, enter type in comment: No Thrombosis Risk Factor Assessment Total Risk Factor Score: 2 Thrombosis Risk Factor Assessment Level: Low Risk
--- NOTE | 2023-03-03 15:52 | P.DS ---
Providers Date of admission: 03/02/23 16:37 Expected date of discharge: 03/03/23 Attending physician: Sher Aquino Consults: 03/02/23 16:31 Consult Physician Routine Consulting Provider: Kwaku Moseley Consult Reason/Comments: cp,HTN,known Do you want consulting provider notified?: Yes Primary care physician: [facility] Course: Chief Complaint: Chest pressure Very pleasant 72-year-old patient who follows with Dr. Clay Martin. [employer] Dr. Moseley. Patient several years ago was diagnosed with blood pressure. Did get antihyper tensive for 2 months then there were discontinued. Patient takes a blood pressure about once a month. 2 days ago patient is not feeling well in the morning and decided take a blood pressure came back at about 179/90. Checked again that is yesterday not feeling well again blood pressure was high. Also developed some chest pressure. No radiation. Decided to come in. Patient has also noticed that she does get short of breath on exertion. No dizziness no lightheadedness. No perspiration. Patient is accompanied by her daughter the bedside. For blood pressure Lopressor was started overnight in the ER. Patient underwent a stress echocardiogram. Reported to be negative. Put on Lopressor. We will follow up with Dr. Moseley outpatient. Past medical history to include: Hyperlipidemia, hypothyroid Social history: No smoking. Alcohol rarely. Lives alone. Physical examination: VITAL SIGNS: 97.7, 72, 16, 155/71, 96% room air GENERAL: BMI 19.6, declining A comfortable. EYES: Pupils equal. Conjunctiva normal. HEENT: External appearance of nose and ears normal, oral cavity grossly normal. NECK: JVD not raised; masses not palpable. HEART: First and second heart sounds are normal; no edema. LUNGS: Respiratory rate normal; clear to auscultation. ABDOMEN: Soft, nontender, liver spleen not palpable, no masses palpable. PSYCH: Alert and oriented x3; mood and affect normal. MUSCULOSKELETAL:No Clubbing/cyanosis;muscles-grossly intact. OA INVESTIGATIONS, reviewed in the clinical context: White count 5.1 hemoglobin 11 platelets 266 sodium 143 potassium 4.5 BUN 12.1 c reatinine 0.7 EKG tracing personally reviewed by me-normal sinus rhythm Chest x-ray film personally reviewed by me-mild hyperinflation Assessment and plan: -Essential hypertension uncontrolled. Blood pressure was recorded over 170 systolic at home. Lopressor. -Chest pain likely angina secondary to uncontrolled blood pressure. Hopefully should be better controlled with Lopressor. Troponins have been negative. Stress echocardiogram: Negative Lopressor. Aspirin. -Hyperlipidemia Zetia -Hypothyroid Synthroid 25 g a day Disposition: Home Past Medical History Past Medical History: Hyperlipidemia, Thyroid Disorder History of Any Multi-Drug Resistant Organisms: None Reported Past Surgical History: Tubal Ligation Additional Past Surgical History / Comment(s): mole removed Past Psychological History: No Psychological Hx Reported Smoking Status: Never smoker Past Alcohol Use History: Rare Past Drug Use History: None Reported Medications and Allergies Home Medications Medication Instructions Recorded Confirmed Type Ezetimibe [Zetia] 10 mg PO HS 03/02/23 03/02/23 History Levothyroxine Sodium [Synthroid] 25 mcg PO DAILY 03/02/23 03/02/23 History Aspirin 81 mg PO DAILY #30 tab 03/03/23 Rx Metoprolol Tartrate [Lopressor] 25 mg PO BID #60 tab 03/03/23 Rx Allergies Allergy/AdvReac Type Severity Reaction Status Date / Time codeine Allergy Rash/Hives Verified 03/02/23 15:51 Sulfa (Sulfonamide Allergy Rash/Hives Verified 03/02/23 15:51 Antibiotics) Plan - Discharge Summary New Discharge Prescriptions: New Aspirin 81 mg PO DAILY #30 tab Metoprolol Tartrate [Lopressor] 25 mg PO BID #60 tab Continue Levothyroxine Sodium [Synthroid] 25 mcg PO DAILY Ezetimibe [Zetia] 10 mg PO HS Discharge Medication List Ezetimibe [Zetia] 10 mg PO HS 03/02/23 [History] Levothyroxine Sodium [Synthroid] 25 mcg PO DAILY 03/02/23 [History] Aspirin 81 mg PO DAILY #30 tab 03/03/23 [Rx] Metoprolol Tartrate [Lopressor] 25 mg PO BID #60 tab 03/03/23 [Rx] Follow up Appointment(s)/Referral(s): Kwaku Moseley MD [STAFF PHYSICIAN] - 03/15/23 8:45 am Clay Martin MD [Primary Care Provider] - 1-2 days Patient Instructions/Handouts: Stress Echocardiogram (DC)
[2023-03-03 16:39] VITALS: BP 139/65; PULSE 80; TEMP 97.4
[2023-03-03] MEDS ORDERED: METOPROLOL TARTRATE 25 MG TAB PO SCH (21:00)
[2023-03-03] MEDS ORDERED: EZETIMIBE 10 MG TAB PO SCH (21:00)
--- NOTE | 2023-03-04 07:20 | CA ---
Transthoracic Echo Report Name: Yuliya Alves Age: 72 Gender: F : 1950 Exam Date: 03/03/2023 12:13 Exam Location: [place] Echo Ht (in): 65 Wt (lb): 118 Ordering Physician: Carmella Mcbride Attending/Referring Phys: [id number], Reed Pole Lift Operator Alma Kerr RDCS Procedure CPT: Indications: LV function Cardiac Hx: Technical Quality: Good Contrast 1: Total Dose (mL): Contrast 2: Total Dose (mL): MEASUREMENTS (Male / Female) Normal Values 2D ECHO LV Diastolic Diameter PLAX 3.8 cm 4.2 - 5.9 / 3.9 - 5.3 cm LV Systolic Diameter PLAX 2.6 cm IVS Diastolic Thickness 1.1 cm 0.6 - 1.0 / 0.6 - 0.9 cm LVPW Diastolic Thickness 1.1 cm 0.6 - 1.0 / 0.6 - 0.9 cm LV Relative Wall Thickness 0.6 RV Internal Dim ED PLAX 2.2 cm LA Systolic Diameter LX 3.1 cm 3.0 - 4.0 / 2.7 - 3.8 cm LV Diastolic Volume MOD 4C 71.9 cm??? LV Systolic Volume MOD 4C 25.0 cm??? LV Ejection Fraction MOD 4C 65.2 % LV Cardiac Index MOD 4C 2101.3 cm???/min???m??? LV Diastolic Length 4C 7.4 cm LV Systolic Length 4C 5.7 cm LV Diastolic Volume MOD 2C 38.1 cm??? LV Systolic Volume MOD 2C 14.2 cm??? LV Ejection Fraction MOD 2C 62.7 % LV Cardiac Index MOD 2C 1070.2 cm???/min???m??? LV Diastolic Length 2C 6.0 cm LV Systolic Length 2C 4.4 cm LA Volume 35.0 cm??? 18 - 58 / 22 - 52 cm??? M-MODE Aortic Root Diameter MM 3.4 cm MV E Point Septal Separation 0.2 cm AV Cusp Separation MM 2.4 cm DOPPLER AV Peak Velocity 130.3 cm/s AV Peak Gradient 6.8 mmHg AI Peak Velocity 277.8 cm/s AI Peak Gradient 30.9 mmHg AI Pressure Half Time 1449.2 ms MV Area PHT 3.7 cm??? Mitral E Point Velocity 97.7 cm/s Mitral A Point Velocity 94.4 cm/s Mitral E to A Ratio 1.0 MV Deceleration Time 207.8 ms MV E' Velocity 7.4 cm/s Mitral E to MV E' Ratio 13.1 TR Peak Velocity 238.7 cm/s TR Peak Gradient 22.8 mmHg Right Ventricular Systolic Press 27.8 mmHg FINDINGS Left Ventricle Left ventricular ejection fraction is estimated at 55-60 %. Left ventricular cavity size normal. normal left ventricular wall motion. Right Ventricle Normal right ventricular size and function. Right ventricular systolic pressure within normal limits. Right Atrium Normal right atrial size. Left Atrium Normal left atrial size. Mitral Valve Structurally normal mitral valve. No mitral stenosis, regurgitation or prolapse. Aortic Valve Trileaflet aortic valve. Mild aortic regurgitation.aortic valve not well visualized. Tricuspid Valve Structurally normal tricuspid valve. Mild tricuspid regurgitation. Pulmonic Valve Structurally normal pulmonic valve. No pulmonic regurgitation. Pericardium No pericardial effusion. Aorta Normal size aortic root and proximal ascending aorta. CONCLUSIONS 1. Normal left ventricular size and systolic function 2. Mild mitral, aortic and tricuspid regurgitation with no evidence of pulmonary hypertension Previewed by: Dr. Kwaku Moseley MD (Electronically Signed) Final Date: 04 March 2023 07:18
== END 2023-03-03 15:46 | disposition home or self-care (01) ==
LOC: EC 09:42 → 6NMEDSUR 16:37
PROVIDERS: ADMIT Hospitalist; ATTEND Hospitalist
DX: I16.0 Hypertensive urgency (principal); E78.5 Hyperlipidemia, unspecified; E03.9 Hypothyroidism, unspecified; F41.9 Anxiety disorder, unspecified; Z79.82 Long term (current) use of aspirin; Z79.890 Hormone replacement therapy; Z79.899 Other long term (current) drug therapy; Z88.2 Allergy status to sulfonamides; Z91.011 Allergy to milk products; Z98.51 Tubal ligation status; Z98.890 Other specified postprocedural states
CPT/HCPCS: 96361 ×2; 96360; 99291; 36415; 93005; 93306; 93351; 85379; 83880; 80053 ×2; 83735 ×2; 84100; 84484; 85025 ×2; 85610; 85730; 71046; G0378 ×2

== ENCOUNTER → 2023-03-28 | Outpatient (CLI) | payer MEDICARE, BC ==
[2023-03-28 11:07] LABS: ALT 18 U/L (8-44); AST 18 U/L (13-35); Albumin 4.1 d/dL (3.8-4.9); Albumin/Globulin Ratio 2.28 Ratio (1.60-3.17); Alkaline Phosphatase 71 U/L (41-126); BUN/Creat Ratio 17.29 Ratio (12.00-20.00); Blood Urea Nitrogen 12.1 mg/dL (9.0-27.0); Carbon Dioxide 24.7 mmol/L (21.6-31.8); Chloride 107 mmol/L (96-109); Chol/HDL Ratio 3.14 Ratio; Globulin 1.8 d/dL (1.6-3.3); Glucose 92 mg/dL (70-110); LDL Cholesterol,Calculated 114.1 mg/dL (0.0-131.0); Sodium 143 mmol/L (135-145); Total Bilirubin 0.4 mg/dL (0.3-1.2); Total Protein 5.9 d/dL (6.2-8.2)
== END | disposition home or self-care (01) ==
LOC: LABWHC1 07:00
PROVIDERS: ATTEND Internal Medicine Interventional Cardiology
DX: I10 Essential (primary) hypertension (principal); E78.2 Mixed hyperlipidemia
CPT/HCPCS: 36415; 80053; 80061

== ENCOUNTER → 2023-09-13 | Outpatient (CLI) | payer MEDICARE, BC ==
[2023-09-13 11:40] LABS: ALT 28 U/L (8-44); AST 24 U/L (13-35); Chol/HDL Ratio 3.78 Ratio; LDL Cholesterol,Calculated 154.6 mg/dL (0.0-131.0)
== END | disposition home or self-care (01) ==
LOC: LABWHC1 06:51
PROVIDERS: ATTEND Internal Medicine Interventional Cardiology
DX: E78.2 Mixed hyperlipidemia (principal)
CPT/HCPCS: 36415; 80061; 84450; 84460

== ENCOUNTER → 2024-01-31 | Outpatient (CLI) | payer MEDICARE, BC ==
--- NOTE | 2024-02-21 11:01 | MM ---
Reason for Exam: Screening (asymptomatic). Last screening mammogram was performed 12 month(s) ago. Patient History: Menarche at age 17. First Full-Term at age 24. Postmenopausal. Other cancer. Hormonal Contraceptives for 3 months. Mother had breast cancer, age 52. Risk Values: Minnie 5 year model risk: 3.1%. NCI Lifetime model risk: 7.9%. Prior Study Comparison: 01/02/2021 Bilateral Screening Mammogram, [facility]. 01/11/2022 Bilateral MG 3D screening mammo w/cad, [facility]. 01/18/2023 Bilateral MG 3D screening mammo w/cad, [facility]. Tissue Density: The breasts are heterogeneously dense, which may obscure small masses. Findings: Analyzed By CAD. There is no suspicious group of microcalcifications or new suspicious mass in either breast. Benign calcifications. Chronic nodularity stable. Overall Assessment: Benign, BI-RAD 2 Management: Screening Mammogram of both breasts in 1 year. . Patient should continue monthly self-breast exams. A clinical breast exam by your physician is recommended on an annual basis. This exam should not preclude additional follow-up of suspicious palpable abnormalities. Note on Minnie scores and lifetime risk: 1. A Minnie score greater than 3% is considered moderate risk. If this is the case, consider specialist referral to assess eligibility for a risk reducing agent. 2. If overall lifetime risk for the development of breast cancer is 20% or higher, the patient may qualify for future screening with alternating mammogram and breast MRI. Electronically signed and approved by: Marcello Fields M.D. Radiologis
== END | disposition home or self-care (01) ==
LOC: RADMAMWWP 12:00
PROVIDERS: ATTEND Family Medicine
DX: Z12.31 Encounter for screening mammogram for malignant neoplasm of breast
CPT/HCPCS: 77063; 77067

== ENCOUNTER → 2024-05-02 | Outpatient (CLI) | payer MEDICARE, BC ==
[2024-05-02 10:27] LABS: ALT 19 U/L (8-44); AST 19 U/L (13-35); Chol/HDL Ratio 3.42 Ratio; LDL Cholesterol,Calculated 145.8 mg/dL (0.0-131.0)
== END | disposition home or self-care (01) ==
LOC: LABWHC1 07:02
PROVIDERS: ATTEND Internal Medicine Interventional Cardiology
DX: E78.2 Mixed hyperlipidemia (principal)
CPT/HCPCS: 36415; 80061; 84450; 84460